=== PATIENT | male | born 1995 | race Caucasian/White ===

== ENCOUNTER 2017-08-16 17:44 | Emergency (ER) | payer OTHER ==
[~2017-08-16] VITALS: Ht 193 cm; Wt 150.0 kg
[~2017-08-16 17:44] MED LIST: MONT10TA4
[2017-08-16 17:58] VITALS: BP 169/89; PULSE 114; RESP 16; O2SAT 100
[2017-08-16] MEDS ORDERED: CETI-1 PO (18:16)
[2017-08-16] MEDS ORDERED: OMEP20TA93 PO (18:16)
[2017-08-16 18:18] VITALS: BP 183/89; PULSE 103; RESP 16; TEMP 98.2; O2SAT 100
--- NOTE | 2017-08-16 18:18 | PD ---
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 Patient states weakness is worse in the last 24 hours. Patient states generalized weakness without specific weakness. He denies recent illness. He states he was drinking energy drinks until a week ago he started having palpitations. He has had intermittent chest pain or shortness of breath. He does have a history of sleep apnea. No previous cardiac history. He is allergic to sulfa. PFSH Past Medical History Diminished Hearing: No Social History Alcohol Use: No Tobacco Use: No Substance Use: No Allergies-Medications (Allergen,Severity, Reaction): Coded Allergies: Sulfa (Sulfonamide Antibiotics) (Verified Allergy, Mild, 08/16/17) Reported Meds & Prescriptions Reported Meds & Active Scripts Active Reported Zyrtec (Cetirizine HCl) 10 Mg Tablet 10 Mg PO DAILY Omeprazole 20 Mg Tab 20 Mg PO DAILY Review of Systems Except as stated in HPI: all other systems reviewed are Neg General / Constitutional: No: Fever Eyes: No: Visual changes HENT: No: Headaches Cardiovascular: Positive: Chest Pain or Discomfort, Palpitations, Other ( Generalized weakness), No: Irregular Rhythm, Tachycardia, Diaphoresis, Syncope, Dyspnea on exertion, Varicosities, Edema, Cyanosis, Varicosities, Phlebitis, Claudication Respiratory: No: Cough, Shortness of Breath, Wheezing Gastrointestinal: No: Nausea, Vomiting, Diarrhea, Abdominal Pain Genitourinary: No: Dysuria Musculoskeletal: No: Pain Skin: No Rash Neurologic: No: Weakness Psychiatric: No: Depression Endocrine: No: Polydipsia Hematologic/Lymphatic: No: Easy Bruising Physical Exam Narrative GENERAL: Patient appears in no obvious distress per SKIN: Warm and dry. Normal color. Normal turgor HEAD: Atraumatic. Normocephalic. EYES: Pupils equal and round. No scleral icterus. No injection or drainage. ENT: No nasal bleeding or discharge. Mucous membranes pink and moist. Pharynx is clear. Airways patent NECK: Trachea midline. Supple and nontender CARDIOVASCULAR: Regular rate and rhythm. No murmurs gallops or rubs RESPIRATORY: No accessory muscle use. Clear to auscultation. Breath sounds equal bilaterally. GASTROINTESTINAL: Abdomen soft, non-tender, nondistended. Hepatic and splenic margins not palpable. MUSCULOSKELETAL: Extremities without clubbing, cyanosis, or edema. No obvious deformities. NEUROLOGICAL: Awake and alert. No obvious cranial nerve deficits. Motor grossly within normal limits. Five out of 5 muscle strength in the arms and legs. Normal speech. PSYCHIATRIC: Appropriate mood and affect; insight and judgment normal. Data Data Last Documented VS Vital Signs Date Time Temp Pulse Resp B/P (MAP) Pulse Ox O2 Delivery O2 Flow Rate FiO2 08/16/17 21:21 08/16/17 18:26 101 20 08/16/17 18:23 100 Room Air 08/16/17 18:18 98.2 Orders Orders Electrocardiogram (08/16/17 18:18) Ckmb (Isoenzyme) Profile (08/16/17 18:18) Complete Blood Count With Diff (08/16/17 18:18) Comprehensive Metabolic Panel (08/16/17 18:18) Magnesium (Mg) (08/16/17 18:18) Prothrombin Time / Inr (Pt) (08/16/17 18:18) Act Partial Throm Time (Ptt) (08/16/17 18:18) Troponin I (08/16/17 18:18) Ecg Monitoring (08/16/17 18:18) Bilateral Bp Monitoring (08/16/17 18:18) Iv Access Insert/Monitor (08/16/17 18:18) Oximetry (08/16/17 18:18) Oxygen Administration (08/16/17 18:18) Aspirin Chew (Aspirin Chew) (08/16/17 18:30) Sodium Chloride 0.9% Flush (Ns Flush) (08/16/17 18:30) Sodium Chlorid 0.9% 500 Ml Inj (Ns 500 M (08/16/17 18:30) Chest, Pa & Lat (08/16/17 18:18) Ct Pulmonary Angiogram (08/16/17 18:18) CKMB (08/16/17 18:20) CKMB% (08/16/17 18:20) Iohexol 350 Inj (Omnipaque 350 Inj) (08/16/17 19:24) Ed Discharge Order (08/16/17 20:29) Labs Laboratory Tests Test 08/16/17 18:20 White Blood Count 8.6 TH/MM3 Red Blood Count 5.86 MIL/MM3 Hemoglobin 15.4 GM/DL Hematocrit 45.5 % Mean Corpuscular Volume 77.8 FL Mean Corpuscular Hemoglobin 26.3 PG Mean Corpuscular Hemoglobin Concent 33.8 % Red Cell Distribution Width 14.6 % Platelet Count 238 TH/MM3 Mean Platelet Volume 8.6 FL Neutrophils (%) (Auto) 70.7 % Lymphocytes (%) (Auto) 21.2 % Monocytes (%) (Auto) 6.0 % Eosinophils (%) (Auto) 1.2 % Basophils (%) (Auto) 0.9 % Neutrophils # (Auto) 6.1 TH/MM3 Lymphocytes # (Auto) 1.8 TH/MM3 Monocytes # (Auto) 0.5 TH/MM3 Eosinophils # (Auto) 0.1 TH/MM3 Basophils # (Auto) 0.1 TH/MM3 CBC Comment DIFF FINAL Differential Comment Prothrombin Time 10.6 SEC Prothromb Time International Ratio 1.0 RATIO Activated Partial Thromboplast Time 26.9 SEC Blood Urea Nitrogen 10 MG/DL Creatinine 1.05 MG/DL Random Glucose 114 MG/DL Total Protein 8.4 GM/DL Albumin 4.4 GM/DL Calcium Level 9.2 MG/DL Magnesium Level 2.2 MG/DL Alkaline Phosphatase 57 U/L Aspartate Amino Transf (AST/SGOT) 25 U/L Alanine Aminotransferase (ALT/SGPT) 38 U/L Total Bilirubin 0.5 MG/DL Sodium Level 140 MEQ/L Potassium Level 4.0 MEQ/L Chloride Level 103 MEQ/L Carbon Dioxide Level 27.8 MEQ/L Anion Gap 9 MEQ/L Estimat Glomerular Filtration Rate 87 ML/MIN Total Creatine Kinase 102 U/L Creatine Kinase MB LESS THAN 0.5 NG/ML Troponin I LESS THAN 0.02 NG/ML [facility] Medical Decision Making Medical Screen Exam Complete: Yes Emergency Medical Condition: Yes Differential Diagnosis Electrolyte imbalance. Palpitations. PE. Cardiac syndrome. Narrative Course EKG shows normal sinus rhythm without significant ST changes. This is reviewed with Dr. Regan. Labs will include CBC, CMP, cardiac panel, coagulation studies, and d-dimer. Chest x-ray is ordered. CTA is ordered. Patient is given 324 mg aspirin p.o. Patient is given 500 mL normal saline bolus. 1900 hrs. care of the patient is turned over to Dr. Regan as is the end of my shift. Please see his note for final disposition. Condition: Stable Musa Weaver Aug 16, 2017 18:18
[2017-08-16 18:23] VITALS: BP 189/92; PULSE 103; RESP 20; O2SAT 100
[2017-08-16 18:26] VITALS: BP_SYST 154; BP_SYST 189; BP_DIAS 82; BP_DIAS 92; PULSE 101; RESP 20
[2017-08-16] MEDS ORDERED: SODIUM CHLORID 0.9% 500 ML INJ 500 ML IV ONE (18:30)
[2017-08-16] MEDS ORDERED: SODIUM CHLORIDE 0.9% FLUSH 10 ML FLUSH IVF PRN (18:30)
[2017-08-16] MEDS ORDERED: ASPIRIN 81 MG CHEW TAB PO ONE (18:30)
[2017-08-16 18:52] LABS: AUTOMATED NEUTROPHIL # 6.1 TH/MM3 (1.8-7.7); BASOPHIL # 0.1 TH/MM3 (0-0.2); BASOPHIL % 0.9 % (0.0-2.0); EOSINOPHIL # 0.1 TH/MM3 (0-0.4); EOSINOPHIL % 1.2 % (0.0-4.0); HEMATOCRIT 45.5 % (39.0-51.0); HEMOGLOBIN 15.4 GM/DL (13.0-17.0); LYMPH % 21.2 % (9.0-44.0); LYMPHOCYTE # 1.8 TH/MM3 (1.0-4.8); MEAN CELL VOLUME 77.8 FL (80.0-100.0); MEAN CORPUSCULAR HEMOGLOBIN 26.3 PG (27.0-34.0); MEAN CORPUSCULAR HGB CONC 33.8 % (32.0-36.0); MEAN PLATELET VOLUME 8.6 FL (7.0-11.0); MONOCYTE # 0.5 TH/MM3 (0-0.9); NEUT % 70.7 % (16.0-70.0); PLATELET COUNT 238 TH/MM3 (150-450); RED BLOOD COUNT 5.86 MIL/MM3 (4.50-5.90); RED CELL DISTRIBUTION WIDTH 14.6 % (11.6-17.2); WHITE BLOOD COUNT 8.6 TH/MM3 (4.0-11.0)
[2017-08-16 19:05] LABS: PROTHROMBIN TIME - PATIENT 10.6 SEC (9.8-11.6)
[2017-08-16 19:08] LABS: ALBUMIN 4.4 GM/DL (3.4-5.0); AST (GOT) 25 U/L (15-37); BICARBONATE 27.8 MEQ/L (21.0-32.0); BLOOD UREA NITROGEN 10 MG/DL (7-18); CALCIUM 9.2 MG/DL (8.5-10.1); CHLORIDE 103 MEQ/L (98-107); CREATININE 1.05 MG/DL (0.60-1.30); GLOMERULAR FILTRATION RATE 87 ML/MIN (>89); GLUCOSE,RANDOM 114 MG/DL (74-106); MAGNESIUM 2.2 MG/DL (1.5-2.5); SODIUM (NA) 140 MEQ/L (136-145)
[2017-08-16 19:09] LABS: ALT (GPT) 38 U/L (12-78)
[2017-08-16 19:13] LABS: ALKALINE PHOSPHATASE 57 U/L (45-117); TOTAL BILIRUBIN ADULT 0.5 MG/DL (0.2-1.0); TOTAL PROTEIN 8.4 GM/DL (6.4-8.2); TROPONIN I LESS THAN 0.02 NG/ML (0.02-0.05)
[2017-08-16] MEDS ORDERED: IOHEXOL 350 MG/ML 10 ML VIAL (for RAD DIAG) IVCONTRAST ONE (19:24)
--- NOTE | 2017-08-16 19:48 | RADRPT ---
EXAM DATE/TIME: 08/16/2017 18:51 [facility] COMPARISON: No previous studies available for comparison. INDICATIONS : Chest pain. MEDICAL HISTORY : Hypertension. Asthma. SURGICAL HISTORY : None. ENCOUNTER: Initial ACUITY: 1 day PAIN SCORE: 2/10 LOCATION: Bilateral chest FINDINGS: PA and lateral views of the chest demonstrate the lungs to be symmetrically aerated without evidence of mass, infiltrate or effusion. The cardiomediastinal contours are unremarkable. Osseous structure s are intact. CONCLUSION: No acute disease. Nick Cline MD on August 16, 2017 at 19:45 Board Certified Radiologist. This report was verified electronically.
--- NOTE | 2017-08-16 20:02 | RADRPT ---
EXAM DATE/TIME: 08/16/2017 19:19 [facility] COMPARISON: No previous studies available for comparison. INDICATIONS : Chest pain and pressure. IV CONTRAST: 70 cc Omnipaque 350 (iohexol) IV RADIATION DOSE: 10.77 CTDIvol (mGy) MEDICAL HISTORY : None SURGICAL HISTORY : None. ENCOUNTER: Initial ACUITY: 1 day PAIN SCALE: 7/10 LOCATION: chest TECHNIQUE: Volumetric scanning of the chest was performed using a pulmonary embolism protocol MIP images were re constructed. Using automated exposure control and adjustment of the mA and/or kV according to patien t size, radiation dose was kept as low as reasonably achievable to obtain optimal diagnostic quality images. DICOM format image data is available electronically for review and comparison. Follow-up recommendations for detected pulmonary nodules are based at a minimum on nodule size and pa tient risk factors according to Fleischner Society Guidelines. FINDINGS: PULMONARY ARTERIES: No filling defects are seen in the pulmonary arteries through the segmental level. LUNGS: There is no consolidation or pneumothorax . No concerning pulmonary nodule is visualized. PLEURAE: There is no pleural thickening or pleural effusion. MEDIASTINUM: There is good visualization of the great vessels of the middle mediastinum. No evidence of mediastin al or hilar adenopathy/mass. MUSCULOSKELETAL: Within normal limits for patient age. MISCELLANEOUS: The visualized upper abdominal organs demonstrate no acute abnormality. CONCLUSION: Normal examination for a patient of this age. Nick Cline MD on August 16, 2017 at 19:58 Board Certified Radiologist. This report was verified electronically.
--- NOTE | 2017-08-16 20:29 | PD ---
Physical Exam Narrative GENERAL: SKIN: Warm and dry. HEAD: Atraumatic. Normocephalic. EYES: Pupils equal and round. No scleral icterus. No injection or drainage. ENT: No nasal bleeding or discharge. Mucous membranes pink and moist. NECK: Trachea midline. No JVD. CARDIOVASCULAR: Regular rate and rhythm. RESPIRATORY: No accessory muscle use. Clear to auscultation. Breath sounds equal bilaterally. GASTROINTESTINAL: Abdomen soft, non-tender, nondistended. MUSCULOSKELETAL: Extremities without clubbing, cyanosis, or edema. No obvious deformities. NEUROLOGICAL: Awake and alert. No obvious cranial nerve deficits. Motor grossly within normal limits. Five out of 5 muscle strength in the arms and legs. Normal speech. PSYCHIATRIC: Appropriate mood and affect; insight and judgment normal. Data Data Last Documented VS Vital Signs Date Time Temp Pulse Resp B/P (MAP) Pulse Ox O2 Delivery O2 Flow Rate FiO2 08/16/17 18:26 101 20 163/87 (112) 154/82 (106) 08/16/17 18:23 100 Room Air 08/16/17 18:18 98.2 Orders Orders Electrocardiogram (08/16/17 18:18) Ckmb (Isoenzyme) Profile (08/16/17 18:18) Complete Blood Count With Diff (08/16/17 18:18) Comprehensive Metabolic Panel (08/16/17 18:18) Magnesium (Mg) (08/16/17 18:18) Prothrombin Time / Inr (Pt) (08/16/17 18:18) Act Partial Throm Time (Ptt) (08/16/17 18:18) Troponin I (08/16/17 18:18) Ecg Monitoring (08/16/17 18:18) Bilateral Bp Monitoring (08/16/17 18:18) Iv Access Insert/Monitor (08/16/17 18:18) Oximetry (08/16/17 18:18) Oxygen Administration (08/16/17 18:18) Aspirin Chew (Aspirin Chew) (08/16/17 18:30) Sodium Chloride 0.9% Flush (Ns Flush) (08/16/17 18:30) Sodium Chlorid 0.9% 500 Ml Inj (Ns 500 M (08/16/17 18:30) Chest, Pa & Lat (08/16/17 18:18) Ct Pulmonary Angiogram (08/16/17 18:18) CKMB (08/16/17 18:20) CKMB% (08/16/17 18:20) Iohexol 350 Inj (Omnipaque 350 Inj) (08/16/17 19:24) Labs Laboratory Tests Test 08/16/17 18:20 White Blood Count 8.6 TH/MM3 Red Blood Count 5.86 MIL/MM3 Hemoglobin 15.4 GM/DL Hematocrit 45.5 % Mean Corpuscular Volume 77.8 FL Mean Corpuscular Hemoglobin 26.3 PG Mean Corpuscular Hemoglobin Concent 33.8 % Red Cell Distribution Width 14.6 % Platelet Count 238 TH/MM3 Mean Platelet Volume 8.6 FL Neutrophils (%) (Auto) 70.7 % Lymphocytes (%) (Auto) 21.2 % Monocytes (%) (Auto) 6.0 % Eosinophils (%) (Auto) 1.2 % Basophils (%) (Auto) 0.9 % Neutrophils # (Auto) 6.1 TH/MM3 Lymphocytes # (Auto) 1.8 TH/MM3 Monocytes # (Auto) 0.5 TH/MM3 Eosinophils # (Auto) 0.1 TH/MM3 Basophils # (Auto) 0.1 TH/MM3 CBC Comment DIFF FINAL Differential Comment Prothrombin Time 10.6 SEC Prothromb Time International Ratio 1.0 RATIO Activated Partial Thromboplast Time 26.9 SEC Blood Urea Nitrogen 10 MG/DL Creatinine 1.05 MG/DL Random Glucose 114 MG/DL Total Protein 8.4 GM/DL Albumin 4.4 GM/DL Calcium Level 9.2 MG/DL Magnesium Level 2.2 MG/DL Alkaline Phosphatase 57 U/L Aspartate Amino Transf (AST/SGOT) 25 U/L Alanine Aminotransferase (ALT/SGPT) 38 U/L Total Bilirubin 0.5 MG/DL Sodium Level 140 MEQ/L Potassium Level 4.0 MEQ/L Chloride Level 103 MEQ/L Carbon Dioxide Level 27.8 MEQ/L Anion Gap 9 MEQ/L Estimat Glomerular Filtration Rate 87 ML/MIN Total Creatine Kinase 102 U/L Creatine Kinase MB LESS THAN 0.5 NG/ML Troponin I LESS THAN 0.02 NG/ML [facility] Medical Record Reviewed: Yes Supervised Visit with YADIEL: Yes Interpretation(s) NSR, 90 BPM, ALAN, NO STEMI PATTERN Differential Diagnosis ATYPICAL STEMI V PNA V PULM EMBOLUS Narrative Course NO LEUKOCYTOSIS, NO ANEMIA, NORMAL PLATELET COUNT AND NO LEFT SHIFT COAG FACTORS WNL NORMAL ELECTROLYTES, NORMAL LIVER/KIDNEY FUNCTIONS, NEG CARDIAC ENZYMES CT CHEST R/O PE READ BY RADIOLOGIST ::::CONCLUSION: Normal examination for a patient of this age. CXR READ BY RADIOLOGIST:::CONCLUSION: No acute disease. Diagnosis Primary Impression: CHEST PAIN Patient Instructions: Chest Pain (ED), General Instructions Disposition: 01 DISCHARGE HOME Condition: Stable Hemant Regan MD Aug 16, 2017 20:29
--- NOTE | 2017-08-17 19:16 | EKG ---
Date Performed: 08/16/2017 Time Performed: 18:06:24 PTAGE: 22 years EKG: Sinus rhythm NORMAL ECG NO PREVIOUS TRACING DOCTOR: Timothy Ross Interpretating Date/Time 08/17/2017 19:13:49
== END 2017-08-16 23:52 | disposition home or self-care (01) ==
LOC: NEPD 17:44
DX: R07.9 Chest pain, unspecified (principal); R06.02 Shortness of breath; R53.1 Weakness; R00.2 Palpitations; G47.30 Sleep apnea, unspecified
CPT/HCPCS: 71046; 71275; 80053; 82550; 82552; 83735; 84484; 85025; 85610; 85730; 93005; 96360; 99285; J7040; Q9967